=== PATIENT | female | born 1965 | race Two or more races ===

== ENCOUNTER 2016-07-02 13:34 | Emergency (ER) | payer OTHER ==
--- NOTE | ~2016-07-02 | CR181 ---
[facility] A Service of [facility] RADIOLOGY TEXT RESULTS PATIENT: MEGAN HANNAH LOCATION: [facility] : 69 UNIT #: [id number] AGE: [address]: Laura Singh SEX: F ORDER DR: [id number] [facility] [address]. [place], [place] [address] [id number] E MR#: [id number] Acc #: [id number] NAME: MEGAN HANNAH : 1965 SEX: F STUDY DATE/TIME: 07/02/2016 15:38 UNIT: [facility] ROOM: STUDY DESCRIPTION: CR Lumbar Spine 2 or 3 Views Attending Physician: Laura Singh Pa-C Ordering Physician: Laura Singh Pa-C MEDICAL IMAGING REPORT This report is preliminary unless electronic signature is present EXAM Lumbar spine series 07/02/2016 HISTORY 2 days of low back pain radiating down left buttock into posterior left thigh. FINDINGS AP and 2 lateral views of the lumbar spine are presented. There are 5 lumbar-type vertebral segments. Normal alignment. Vertebral body heights normal. Ngorhwlr-tj-kfjejg intervertebral disc space narrowing L5-S1. Other intervertebral disc space heights are normal. Lower thoracic spine normal. Visualized bony pelvis shows mild narrowing of partially visualized hip joints. The lung bases and bowel gas pattern are normal in their visualized extent. Facet joint relationships are normal. IMPRESSION 1. No acute abnormality is seen in the lumbar spine. There is fckisfqq-wj-tyqjck narrowing of the L5-S1 intervertebral disc space. If it would assist in management, spinal canal and neural foraminal contents could be further evaluated with elective MRI if patient is candidate, or elective CT. 2. Mild narrowing bilateral partially visualized hip joints. 3. Remainder of study unremarkable. Dictated by... Cliff Garcia M.D. THIS IS AN ELECTRONICALLY VERIFIED REPORT Cliff Garcia M.D. at 07/03/2016 2:21 PM JSK/pcl [facility] A Service of [facility] RADIOLOGY TEXT RESULTS PATIENT: MEGAN HANNAH LOCATION: [facility] : 69 UNIT #: [id number] AGE: [address]: Laura Singh SEX: F ORDER DR: TD: 07/02/2016 20:34 JOB #: [id number] MEDICAL IMAGING REPORT Page 1 of 1 COPY
[~2016-07-02 13:34] MED LIST: FLEXERIL PO; VICODIN 5/500 T1 TAB PO
== END 2016-07-02 17:00 | disposition home or self-care (01) ==
LOC: CFTX 13:34 → CED 13:34 → CFTX 15:31
DX: M54.42 Lumbago with sciatica, left side (principal); I10 Essential (primary) hypertension
CPT/HCPCS: 72100; 96372; 99284; J1885; J2360